=== PATIENT | male | born 1950 | race Caucasian/White ===

== ENCOUNTER 2018-01-01 20:51 | Emergency (ER) | payer MEDICARE, OTHER ==
[2018-01-01] MEDS ORDERED: Famotidine In NaCl 20 mg/50 ml Premix Bag ONE (21:21)
[2018-01-01] MEDS ORDERED: Fentanyl 100 MCG/2 ML VIAL ONE (21:23)
[2018-01-01 21:38] LABS: Bilirubin Negative (Negative); Blood, Urine Trace (Negative); Clarity Clear (Clear); Glucose, Urine (Dipstick) Negative (Negative); Leukocyte Negative (Negative); Nitrite Negative (Negative); Protein, Urine (Dipstick) Negative (Neg-Trace); Urobilinogen 0.2 mg/dL (0.2-1.0); pH, Urine 5.5 (5.0-9.0)
[2018-01-01 21:39] LABS: Specific Gravity, Urine 1.002 (1.002-1.036)
[2018-01-01 21:39] LABS: ALT (SGPT) 163 U/L (8-55); AST (SGOT) 149 U/L (5-34); Albumin 3.5 g/dL (3.4-4.8); Alkaline Phosphatase 73 U/L (40-150); Anion Gap 13 mmol/L (10-20); BUN (Urea Nitrogen) 9 mg/dL (8.4-25.7); Bilirubin, Total 0.5 mg/dL (0.2-1.2); Calc. Creatinine Clearance 0 mL/min (70-130); Calcium 8.4 mg/dL (7.8-10.44); Carbon Dioxide 21 mmol/L (23-31); Chloride 103 mmol/L (98-107); Estimated GFR-MDRD Greater than 90; Globulin 5.2 g/dL (2.4-3.5); Glucose 116 mg/dL (80-115); Lipase 28 U/L (8-78); Potassium 3.9 mmol/L (3.5-5.1); Protein, Total 8.7 g/dL (5.8-8.1); Sodium 133 mmol/L (136-145); Troponin I Less than 0.010 ng/mL (< 0.028)
[2018-01-01] MEDS ORDERED: Ondansetron HCl/PF 4 MG/2 ML Vial ONE (21:41)
[2018-01-01 21:42] LABS: Bacteria/HPF None Seen HPF (None Seen); RBC/HPF 0-3 HPF (0-3); Squamous Epithelial None Seen HPF (0-3); WBC/HPF 0-3 HPF (0-3)
[2018-01-01 21:43] LABS: Hemoglobin 13.7 g/dL (14.0-18.0); Red Blood Cell (RBC) Count 4.01 mill/uL (4.70-6.10); White Blood Cell (WBC) Count 7.4 thou/uL (4.8-10.8)
[2018-01-01 21:44] LABS: #Lymphocytes 1.8 thou/uL (1.20-3.40); #Neutrophils 4.8 thou/uL (1.40-6.50); %Basophils 1.1 % (0.0-1.0); %Eosinophils 0.4 % (0.0-10.0); %Monocytes 9.6 % (0.0-10.0); %Neutrophils 64.9 % (42.0-75.0); Mean Corpuscular HGB CONC 33.7 g/dL (32.0-36.0); Mean Corpuscular Hemoglobin 34.1 pg (27.0-31.0); Mean Platelet Volume 8.1 fL (7.4-10.4); Platelet Count 157 thou/uL (130-400)
[2018-01-01 21:45] LABS: #Basophils 0.1 thou/uL (0.0-0.2); #Monocytes 0.7 thou/uL (0.11-0.59); Macrocytosis SLIGHT = 6-15 cells (100X) (0-5/hpf); RBC Morphology Normal
[2018-01-01 21:46] LABS: PLT Morphology Comment Appears Adequate
--- NOTE | 2018-01-01 22:37 | CT ---
CT ABDOMEN AND PELVIS WITH CONTRAST: 01/01/18 Spiral computed tomography of the abdomen and pelvis was performed with IV contrast. Oral contrast wa s withheld by request. Axial slices were acquired then coronal reconstructions were done. The liver, spleen, pancreas, adrenal glands, kidneys and abdominal aorta showed no acute findings. Ar teriosclerotic change was seen in the aorta. The gallbladder seems slightly distended, though the length of 7.6 cm is not excessive. On a few of t he slices, a small crescent is seen in the neck of the gallbladder that is suspicious for the edge of a lucent stone. An elective ultrasound to investigate this further is recommended. The bowel shows no signs of obstruction. The proximal small bowel is slightly fluid filled and perhap s has some minimally thickened loops, but overall, the appearance is not very concerning. There is ca lcification in the colon that is probably not of concern. No free air of free fluid was seen. CT of the pelvis shows no pelvic masses, fluid collections, or inflammatory changes. A few diverticul a were seen in the sigmoid colon. IMPRESSION: Slightly distended gallbladder with a possible stone in its neck. An elective ultrasound is recommend ed to investigate this further. POS: HOME
[2018-01-01] MEDS ORDERED: Ketorolac Tromethamine 30 MG/ML VIAL ONE (22:51)
== END 2018-01-01 23:02 | disposition home or self-care (01) ==
LOC: BURERS 20:51
DX: K42.9 Umbilical hernia without obstruction or gangrene (principal); R79.89 Other specified abnormal findings of blood chemistry; F17.210 Nicotine dependence, cigarettes, uncomplicated
CPT/HCPCS: 74177; 80053; 81003; 81015; 82553; 83690; 84484; 85025; 96365; 96375; J1885; J2405; J3010

== ENCOUNTER 2018-07-27 00:56 | Emergency (ER) | payer MEDICARE, OTHER ==
[2018-07-27] MEDS ORDERED: Fentanyl 100 MCG/2 ML VIAL ONE (01:03)
[2018-07-27] MEDS ORDERED: Ondansetron HCl/PF 4 MG/2 ML Vial ONE (01:03)
[2018-07-27 01:35] LABS: #Basophils 0.1 thou/uL (0.0-0.2); #Eosinphils 0.1 thou/uL (0.0-0.7); #Lymphocytes 3.9 thou/uL (1.20-3.40); #Monocytes 0.9 thou/uL (0.11-0.59); #Neutrophils 2.9 thou/uL (1.40-6.50); %Basophils 1.7 % (0.0-1.0); %Eosinophils 1.2 % (0.0-10.0); %Lymphocytes 49.6 % (21.0-51.0); %Monocytes 11.1 % (0.0-10.0); %Neutrophils 36.6 % (42.0-75.0); Hemoglobin 14.1 g/dL (14.0-18.0); Mean Corpuscular HGB CONC 33.2 g/dL (32.0-36.0); Mean Corpuscular Hemoglobin 32.9 pg (27.0-31.0); Mean Corpuscular Volume 99.1 fL (78.0-98.0); Mean Platelet Volume 8.8 fL (7.4-10.4); Platelet Count 182 thou/uL (130-400); RBC Distribution Width 12.2 % (11.5-14.5); Red Blood Cell (RBC) Count 4.28 mill/uL (4.70-6.10); White Blood Cell (WBC) Count 7.8 thou/uL (4.8-10.8)
[2018-07-27 01:37] LABS: Bilirubin Negative (Negative); Blood, Urine Small (Negative); Clarity Clear (Clear); Glucose, Urine (Dipstick) Negative (Negative); Leukocyte Negative (Negative); Nitrite Negative (Negative); Protein, Urine (Dipstick) Negative (Neg-Trace); Specific Gravity, Urine 1.006 (1.005-1.030); Urobilinogen 0.2 mg/dL (0.2-1.0); pH, Urine 5.5 (5.0-9.0)
[2018-07-27 01:41] LABS: CKMB 2.9 ng/mL (0-6.6); Troponin I Less than 0.010 ng/mL (< 0.028)
[2018-07-27 01:44] LABS: Squamous Epithelial 0-3 HPF (0-3); WBC/HPF 0-3 HPF (0-3)
[2018-07-27 01:45] LABS: Bacteria/HPF Rare-Few HPF (None Seen)
[2018-07-27 01:55] LABS: ALT (SGPT) 95 U/L (8-55); AST (SGOT) 99 U/L (5-34); Albumin 3.6 g/dL (3.4-4.8); Alkaline Phosphatase 76 U/L (40-150); Anion Gap 12 mmol/L (10-20); BUN (Urea Nitrogen) 8 mg/dL (8.4-25.7); Bilirubin, Total 0.6 mg/dL (0.2-1.2); Calc. Creatinine Clearance 0 mL/min (70-130); Calcium 8.5 mg/dL (7.8-10.44); Carbon Dioxide 23 mmol/L (23-31); Chloride 103 mmol/L (98-107); Estimated GFR-MDRD Greater than 90; Globulin 5.3 g/dL (2.4-3.5); Glucose 81 mg/dL (80-115); Potassium 3.7 mmol/L (3.5-5.1); Protein, Total 8.9 g/dL (5.8-8.1); Sodium 134 mmol/L (136-145)
== END 2018-07-27 01:47 | disposition short-term general hospital (02) ==
LOC: BURERS 00:56
DX: S31.103A Unspecified open wound of abdominal wall, right lower quadrant without penetration into peritoneal cavity, initial encounter (principal); F17.210 Nicotine dependence, cigarettes, uncomplicated; W32.0XXA Accidental handgun discharge, initial encounter
CPT/HCPCS: 51702; 80053; 81003; 81015; 82553; 84484; 85025; 93005; 96374; 96375; G0390; J2405; J3010; J7620

== ENCOUNTER 2020-02-10 20:09 | Emergency (ER) | payer MEDICARE ==
[2020-02-10] MEDS ORDERED: Morphine 10 MG/ML VIAL ONE (20:32)
--- NOTE | 2020-02-10 22:54 | RAD ---
SACRUM AND COCCYX: 02/10/20 Exam in three views shows the arcuate lines of the sacrum to appear intact. The SI joints are symmetr ical. On the lateral view, there is a cortical irregularity around the distal sacrum/proximal coccyx. There is a suspicion of a nondisplaced fracture here. CT would be more definitive. The other portion s of the bony pelvis visible on the study were unremarkable. IMPRESSION: Suspicion of a fracture of the distal sacrum/proximal coccyx. Code T POS: HOME
== END 2020-02-10 21:05 | disposition home or self-care (01) ==
LOC: BURERS 20:09
DX: S32.2XXA Fracture of coccyx, initial encounter for closed fracture (principal); Z87.891 Personal history of nicotine dependence; Z79.899 Other long term (current) drug therapy; W18.2XXA Fall in (into) shower or empty bathtub, initial encounter
CPT/HCPCS: 72220; 96374; J2270

== ENCOUNTER 2022-06-20 18:18 | Emergency (ER) | payer MEDICARE ==
[2022-06-20] MEDS ORDERED: predniSONE 20 MG TAB ONE (18:43)
[2022-06-20] MEDS ORDERED: Sulfameth/Trimethoprim DS 800-160mg TAB ONE (18:43)
[2022-06-20] MEDS ORDERED: hydrOXYzine 25 MG TAB ONE (18:53)
== END 2022-06-20 18:55 | disposition home or self-care (01) ==
LOC: BURERS 18:18
DX: H66.92 Otitis media, unspecified, left ear (principal); K21.9 Gastro-esophageal reflux disease without esophagitis; J44.9 Chronic obstructive pulmonary disease, unspecified
CPT/HCPCS: 99282; J7512

== ENCOUNTER 2023-05-29 17:46 | Emergency (ER) | payer MEDICARE ==
[2023-05-29] MEDS ORDERED: Acetaminophen/Codeine 30-300mg Tablet ONE ×2 (18:05)
[2023-05-29 18:36] LABS: #Basophils 0.1 thou/uL (0.0-0.2); #Eosinphils 0.2 thou/uL (0.0-0.7); #Lymphocytes 1.8 thou/uL (1.20-3.40); #Monocytes 0.6 thou/uL (0.11-0.59); #Neutrophils 3.5 thou/uL (1.40-6.50); %Basophils 1.3 % (0.0-1.0); %Eosinophils 3.3 % (0.0-10.0); %Lymphocytes 29.3 % (21.0-51.0); %Monocytes 9.7 % (0.0-10.0); %Neutrophils 56.4 % (42.0-75.0); Hemoglobin 13.8 g/dL (14.0-18.0); Mean Corpuscular HGB CONC 32.7 g/dL (32.0-36.0); Mean Corpuscular Hemoglobin 32.9 pg (27.0-31.0); Mean Platelet Volume 7.5 fL (7.4-10.4); Platelet Count 171 10x3/uL (130-400); White Blood Cell (WBC) Count 6.2 10x3/uL (4.8-10.8)
[2023-05-29] MEDS ORDERED: Ipratropium/Albuterol 3 ML NEB ONE (18:45)
[2023-05-29 18:55] LABS: ALT (SGPT) 403 U/L (8-55); AST (SGOT) 292 U/L (5-34); Alkaline Phosphatase 150 U/L (40-110); Anion Gap 10 mmol/L (10-20); BUN (Urea Nitrogen) 14 mg/dL (8.4-25.7); Bilirubin, Total 0.6 mg/dL (0.2-1.2); Calc. Creatinine Clearance 0 mL/min (70-130); Calcium 8.9 mg/dL (7.8-10.44); Carbon Dioxide 23 mmol/L (23-31); Chloride 108 mmol/L (98-107); Estimated GFR 77; Globulin 6.6 g/dL (2.4-3.5); Glucose 100 mg/dL (80-115); Potassium 4.2 mmol/L (3.5-5.1); Protein, Total 9.6 g/dL (5.8-8.1); Sodium 137 mmol/L (136-145)
== END 2023-05-29 20:04 | disposition home or self-care (01) ==
LOC: BURERS 17:46
DX: J11.1 Influenza due to unidentified influenza virus with other respiratory manifestations (principal); K21.9 Gastro-esophageal reflux disease without esophagitis; J44.9 Chronic obstructive pulmonary disease, unspecified; Z87.891 Personal history of nicotine dependence
CPT/HCPCS: 71046; 80053; 83605; 83880; 84484; 85025; 87040; 87804; J7620

== ENCOUNTER 2023-11-07 19:07 | Emergency (ER) | payer MEDICARE ==
[~2023-11-07 19:07] MED LIST: Iopamidol 370 76% 100 ML VIAL ONE
[2023-11-07] MEDS ORDERED: Ipratropium/Albuterol 3 ML NEB ONE (19:12)
[2023-11-07] MEDS ORDERED: Albuterol 2.5 MG/0.5 ML NEB ONE (19:15)
[2023-11-07] MEDS ORDERED: methylPREDNISolone Sod Succ/PF 125 MG/2 ML VIAL ONE (19:23)
[2023-11-07] MEDS ORDERED: Lorazepam 2 MG/ML VIAL ONE (19:23)
[2023-11-07 19:32] LABS: #Lymphocytes 1.7 thou/uL (1.20-3.40); #Monocytes 0.4 thou/uL (0.11-0.59); #Neutrophils 11.1 thou/uL (1.40-6.50); %Basophils 0.3 % (0.0-1.0); %Lymphocytes 13.1 % (21.0-51.0); %Monocytes 2.9 % (0.0-10.0); %Neutrophils 83.6 % (42.0-75.0); Hematocrit 45.1 % (42.0-52.0); Hemoglobin 14.6 g/dL (14.0-18.0); Mean Corpuscular HGB CONC 32.4 g/dL (32.0-36.0); Mean Corpuscular Hemoglobin 31.7 pg (27.0-31.0); Mean Corpuscular Volume 98.1 fl (78.0-98.0); Mean Platelet Volume 7.7 fL (7.4-10.4); Platelet Count 260 10x3/uL (130-400); RBC Distribution Width 12.3 % (11.5-14.5); White Blood Cell (WBC) Count 13.3 10x3/uL (4.8-10.8)
[2023-11-07 19:48] LABS: ALT (SGPT) 173 U/L (8-55); AST (SGOT) 97 U/L (5-34); Albumin 3.7 g/dL (3.4-4.8); Alkaline Phosphatase 101 U/L (40-110); Anion Gap 15 mmol/L (10-20); BUN (Urea Nitrogen) 17 mg/dL (8.4-25.7); Bilirubin, Total 0.5 mg/dL (0.2-1.2); Calc. Creatinine Clearance 0 mL/min (70-130); Calcium 9.7 mg/dL (7.8-10.44); Carbon Dioxide 18 mmol/L (23-31); Chloride 104 mmol/L (98-107); Estimated GFR 55; Globulin 6.4 g/dL (2.4-3.5); Glucose 102 mg/dL (83-110); Potassium 4.1 mmol/L (3.5-5.1); Protein, Total 10.1 g/dL (5.8-8.1); Sodium 133 mmol/L (136-145)
[2023-11-07] MEDS ORDERED: Morphine 4 MG/ML VIAL ONE (20:03)
[2023-11-07] MEDS ORDERED: Benzonatate 100 MG CAP ONE (20:38)
[2023-11-07] MEDS ORDERED: fentaNYL 50 mcg/mL 1 mL Vial ONE (21:22)
[2023-11-07] MEDS ORDERED: Azithromycin 500 MG VIAL ONE (21:58)
[2023-11-07 22:58] LABS: SARS-CoV-2 NAA Rapid Test Not Detected (NotDetected)
[2023-11-07] MEDS ORDERED: Famotidine/PF 20 mg/2ml Vial ONE (23:00)
== END 2023-11-08 00:35 | disposition short-term general hospital (02) ==
LOC: BURERS 19:07
DX: J44.1 Chronic obstructive pulmonary disease with (acute) exacerbation (principal); R00.0 Tachycardia, unspecified; J44.9 Chronic obstructive pulmonary disease, unspecified; Z79.899 Other long term (current) drug therapy; Z87.891 Personal history of nicotine dependence
CPT/HCPCS: 71046; 71275; 80053; 85025; 85379; 93005; 96361; 96365; 96375; 99285; J0456; J3010; U0002; 36415; J2060; J2270; J2930; J7611; J7620; Q9967; S0028

== ENCOUNTER 2023-11-23 17:30 | Emergency (ER) | payer MEDICARE ==
[2023-11-23] MEDS ORDERED: HYDROcodone/Acetaminophen 10/325 mg Tablet ONE (17:44)
[2023-11-23] MEDS ORDERED: Ipratropium/Albuterol 3 ML NEB ONE (17:44)
[2023-11-23] MEDS ORDERED: Benzonatate 100 MG CAP ONE (17:44)
[2023-11-23] MEDS ORDERED: methylPREDNISolone Sod Succ/PF 125 MG/2 ML VIAL ONE (17:44)
[2023-11-23 18:08] LABS: #Basophils 0.2 thou/uL (0.0-0.2); #Eosinphils 0.3 thou/uL (0.0-0.7); #Lymphocytes 2.4 thou/uL (1.20-3.40); #Neutrophils 4.6 thou/uL (1.40-6.50); %Basophils 1.9 % (0.0-1.0); %Monocytes 11.8 % (0.0-10.0); %Neutrophils 54.3 % (42.0-75.0); Hematocrit 38.6 % (42.0-52.0); Hemoglobin 13.1 g/dL (14.0-18.0); Mean Corpuscular Hemoglobin 32.3 pg (27.0-31.0); Mean Corpuscular Volume 95.1 fl (78.0-98.0); Mean Platelet Volume 7.5 fL (7.4-10.4); Platelet Count 162 10x3/uL (130-400); RBC Distribution Width 11.8 % (11.5-14.5); Red Blood Cell (RBC) Count 4.05 mill/uL (4.70-6.10); White Blood Cell (WBC) Count 8.6 10x3/uL (4.8-10.8)
[2023-11-23 18:25] LABS: ALT (SGPT) 132 U/L (8-55); AST (SGOT) 119 U/L (5-34); Albumin 3.4 g/dL (3.4-4.8); Alkaline Phosphatase 99 U/L (40-110); Anion Gap 15 mmol/L (10-20); BUN (Urea Nitrogen) 8 mg/dL (8.4-25.7); Bilirubin, Total 0.5 mg/dL (0.2-1.2); Calc. Creatinine Clearance 0 mL/min (70-130); Calcium 8.2 mg/dL (7.8-10.44); Carbon Dioxide 15 mmol/L (23-31); Chloride 104 mmol/L (98-107); Estimated GFR 89; Globulin 4.4 g/dL (2.4-3.5); Glucose 87 mg/dL (83-110); Magnesium 1.6 mg/dL (1.6-2.6); Potassium 4.1 mmol/L (3.5-5.1); Protein, Total 7.8 g/dL (5.8-8.1); Sodium 130 mmol/L (136-145)
[2023-11-23] MEDS ORDERED: Amoxicillin/Potassium Clav 875 MG TAB ONE (18:33)
[2023-11-23] MEDS ORDERED: Morphine 4 MG/ML VIAL ONE (18:42)
[2023-11-23] MEDS ORDERED: Ondansetron PF 4 MG/2 ML Vial ONE (18:42)
[2023-11-23 18:55] LABS: SARS-CoV-2 NAA Rapid Test Not Detected (NotDetected)
[2023-11-23] MEDS ORDERED: HYDROcodone/Acetaminophen 5/325 mg Tablet ONE (19:23)
== END 2023-11-23 19:15 | disposition home or self-care (01) ==
LOC: BURERS 17:30
DX: J44.1 Chronic obstructive pulmonary disease with (acute) exacerbation (principal); Z87.892 Personal history of anaphylaxis; Z79.899 Other long term (current) drug therapy
CPT/HCPCS: 71045; 80053; 83735; 84484; 85025; 93005; 96374; 96375; J2270; J2405; J2930; J7620; U0002

== ENCOUNTER 2024-01-23 23:43 | Emergency (ER) | payer MEDICARE ==
[2024-01-24] MEDS ORDERED: Ipratropium/Albuterol 3 ML NEB ONE ×2 (00:15→00:38)
[2024-01-24] MEDS ORDERED: Morphine 4 MG/ML VIAL ONE ×2 (00:15→02:03)
[2024-01-24] MEDS ORDERED: Ondansetron PF 4 MG/2 ML Vial ONE (00:15)
[2024-01-24] MEDS ORDERED: methylPREDNISolone Sod Succ/PF 125 MG/2 ML VIAL ONE (00:15)
[2024-01-24] MEDS ORDERED: Vancomycin 1 GM VIAL ONE (00:26)
[2024-01-24] MEDS ORDERED: Cefepime 2 GM VIAL ONE (00:26)
[2024-01-24 00:45] LABS: ALT (SGPT) 38 U/L (8-55); AST (SGOT) 36 U/L (5-34); Albumin 2.9 g/dL (3.4-4.8); Alkaline Phosphatase 82 U/L (40-110); Anion Gap 14 mmol/L (10-20); BUN (Urea Nitrogen) 23 mg/dL (8.4-25.7); Bilirubin, Total 0.6 mg/dL (0.2-1.2); Calc. Creatinine Clearance 0 mL/min (70-130); Calcium 8.2 mg/dL (7.8-10.44); Carbon Dioxide 14 mmol/L (23-31); Chloride 107 mmol/L (98-107); Estimated GFR 49; Globulin 5.8 g/dL (2.4-3.5); Glucose 108 mg/dL (83-110); Protein, Total 8.7 g/dL (5.8-8.1); Sodium 131 mmol/L (136-145)
[2024-01-24 00:46] LABS: Troponin I Less than 0.010 ng/mL (< 0.028)
[2024-01-24 00:58] LABS: INR-International Normal Ratio 1.2; PTT 32.7 sec (22.9-36.1); Prothrombin Time 14.7 sec (12.0-14.7)
[2024-01-24 01:02] LABS: Hematocrit 36.3 % (42.0-52.0); Hemoglobin 12.9 g/dL (14.0-18.0); Mean Corpuscular HGB CONC 35.6 g/dL (32.0-36.0); Mean Corpuscular Hemoglobin 33.7 pg (27.0-31.0); Mean Corpuscular Volume 94.5 fl (78.0-98.0); Mean Platelet Volume 7.4 fL (7.4-10.4); Platelet Count 163 10x3/uL (130-400); RBC Distribution Width 12.6 % (11.5-14.5); Red Blood Cell (RBC) Count 3.84 mill/uL (4.70-6.10); White Blood Cell (WBC) Count 23.9 10x3/uL (4.8-10.8)
[2024-01-24 01:13] LABS: Influenza A by NAA Not Detected (NotDetected); Influenza B by NAA Not Detected (NotDetected); SARS-CoV-2 NAA Rapid Test Not Detected (NotDetected)
[2024-01-24] MEDS ORDERED: Acetaminophen 500 MG TAB ONE (03:03)
[2024-01-24 04:39] LABS: Band 4 % (5-11); Lymphocytes 17 % (21-51); MDiff Complete? YES; Monocytes 6 % (0-10); Neutrophil 72 % (42-75)
== END 2024-01-24 03:48 | disposition short-term general hospital (02) ==
LOC: BURERS 23:43
DX: J44.1 Chronic obstructive pulmonary disease with (acute) exacerbation (principal); A41.9 Sepsis, unspecified organism; L08.9 Local infection of the skin and subcutaneous tissue, unspecified; Z87.891 Personal history of nicotine dependence
CPT/HCPCS: 36415; 71045; 80053; 83605; 83880; 84484; 85025; 85610; 85730; 86140; 87040; 93005; 94640; 94760; 96365; 96367; 96375; 96376; J0692; J2270; J2405; J2930; J3370; J7620

== ENCOUNTER 2024-04-10 13:39 | Emergency (ER) | payer MEDICARE ==
[2024-04-10 14:24] LABS: #Basophils 0.2 thou/uL (0.0-0.2); #Lymphocytes 1.4 thou/uL (1.20-3.40); #Monocytes 1.1 thou/uL (0.11-0.59); #Neutrophils 12.5 thou/uL (1.40-6.50); %Basophils 1.1 % (0.0-1.0); %Eosinophils 0.2 % (0.0-10.0); %Lymphocytes 9.2 % (21.0-51.0); %Monocytes 6.9 % (0.0-10.0); %Neutrophils 82.6 % (42.0-75.0); Hemoglobin 12.4 g/dL (14.0-18.0); Mean Corpuscular HGB CONC 32.6 g/dL (32.0-36.0); Mean Corpuscular Hemoglobin 32.6 pg (27.0-31.0); Mean Platelet Volume 7.5 fL (7.4-10.4); Platelet Count 78 10x3/uL (130-400); RBC Distribution Width 13.8 % (11.5-14.5); White Blood Cell (WBC) Count 15.2 10x3/uL (4.8-10.8)
[2024-04-10 14:35] LABS: Hypochromia SLIGHT = 6-15 cells (100X) (0-5/hpf); MDiff Complete? YES; Platelet Adequacy Comment Appears Decreased
[2024-04-10] MEDS ORDERED: Morphine 2 MG/ML VIAL ONE ×2 (14:35→15:27)
[2024-04-10 14:38] LABS: ALT (SGPT) 302 U/L (8-55); AST (SGOT) 176 U/L (5-34); Albumin 2.6 g/dL (3.4-4.8); Alkaline Phosphatase 92 U/L (40-110); Anion Gap 10 mmol/L (10-20); BUN (Urea Nitrogen) 11 mg/dL (8.4-25.7); Calc. Creatinine Clearance 0 mL/min (70-130); Calcium 7.7 mg/dL (7.8-10.44); Carbon Dioxide 20 mmol/L (23-31); Chloride 107 mmol/L (98-107); Estimated GFR 93; Glucose 100 mg/dL (83-110); Potassium 3.8 mmol/L (3.5-5.1); Protein, Total 6.6 g/dL (5.8-8.1); Sodium 133 mmol/L (136-145)
[2024-04-10 14:39] LABS: Troponin I 0.017 ng/mL (< 0.028)
[2024-04-10] MEDS ORDERED: Sodium Chloride 0.9% 100 ML ONE (15:05)
[2024-04-10] MEDS ORDERED: Cefepime 2 GM VIAL ONE (15:05)
[2024-04-10 15:45] LABS: Influenza A by NAA Not Detected (NotDetected); Influenza B by NAA Not Detected (NotDetected); SARS-CoV-2 NAA Rapid Test Not Detected (NotDetected)
== END 2024-04-10 15:45 | disposition short-term general hospital (02) ==
LOC: BURERS 13:39
DX: A41.9 Sepsis, unspecified organism (principal); R65.20 Severe sepsis without septic shock; J96.20 Acute and chronic respiratory failure, unspecified whether with hypoxia or hypercapnia; Z79.52 Long term (current) use of systemic steroids; J43.9 Emphysema, unspecified; Z87.891 Personal history of nicotine dependence
CPT/HCPCS: 71045; 80053; 83605; 83880; 84484; 85025; 87040; 93005; 96374; 96376; J0692; J2272; J3490

== ENCOUNTER 2024-04-26 04:04 | Inpatient (IN) | payer MEDICARE ==
[2024-04-27] MEDS ORDERED: Nystatin Powder 15 GM BOT TOP PRN (19:48)
[2024-04-27] MEDS ORDERED: Senokot S 8.6-50 MG TAB PO PRN (19:48)
[2024-04-27] MEDS ORDERED: Hydrocodone-Acetamin 15 ML UDCUP PO PRN (19:48)
[2024-04-27] MEDS ORDERED: Calcium Carbonate 500 MG ChewTAB PO PRN (19:48)
[2024-04-27] MEDS ORDERED: Polyethylene Glycol 3350 17 GM Packet PO PRN (19:48)
[2024-04-27] MEDS: Tamsulosin HCl 0.4 MG CAP PO SCH (20:26)
[2024-04-27] MEDS: Temazepam 15 MG CAP PO SCH (20:26)
[2024-04-27] MEDS: CeleCOXIB 100 MG CAP PO SCH (20:26)
[2024-04-27] MEDS: Apixaban 5 MG TAB PO SCH (20:27)
[2024-04-27] MEDS: Mirtazapine 15 MG TAB PO SCH (20:27)
[2024-04-27] MEDS: Pantoprazole DR 40 MG TAB PO SCH (20:27)
[2024-04-27] MEDS: traZODone HCl 50 MG TAB PO SCH (20:27)
[2024-04-27] MEDS: Metoprolol Tartrate 25 MG TAB PO SCH (20:28)
[2024-04-27] MEDS ORDERED: HYDROcodone/Acetaminophen 10/325 mg Tablet PO PRN (20:42)
[2024-04-27] MEDS: HYDROcodone/Acetaminophen 10/325 mg Tablet PO PRN (20:59)
[2024-04-27] MEDS: Albuterol 200 PUFF (6.7GM INHALER) INH PRN (21:03)
[2024-04-27] MEDS: Benzonatate 100 MG CAP PO PRN (21:42)
[2024-04-27] MEDS: Lorazepam 0.5 MG TAB PO PRN (23:38)
[2024-04-27] MEDS: Ipratropium/Albuterol 3 ML NEB NEB SCH (23:38)
[2024-04-28] MEDS: Guaifenesin DM 100-10/5 ML UDCUP PO PRN (03:02)
[2024-04-28] MEDS: NIFEdipine XL 30 MG ER.TAB PO SCH (08:26)
[2024-04-28] MEDS: LevoFLOXacin 500 MG TAB PO SCH (08:28)
[2024-04-28] MEDS: predniSONE 10 MG TAB PO SCH (08:28)
[2024-04-28] MEDS: Furosemide 20 MG TAB PO SCH (08:29)
[2024-04-28] MEDS: Mometasone 100 MCG/PUFF (1 INHALER) INH SCH (08:29)
[2024-04-28] MEDS: Potassium Chloride 20 MEQ TAB PO SCH (08:30)
[2024-04-28] MEDS ORDERED: Pantoprazole DR 40 MG TAB PO SCH (09:00)
[2024-04-28] MEDS: Cyclobenzaprine 10 MG TAB PO PRN (12:21)
[2024-04-29 09:25] LABS: #Basophils 0.1 thou/uL (0.0-0.2); #Eosinphils 0.1 thou/uL (0.0-0.7); #Lymphocytes 0.8 thou/uL (1.20-3.40); #Monocytes 0.7 thou/uL (0.11-0.59); #Neutrophils 6.9 thou/uL (1.40-6.50); %Basophils 1.6 % (0.0-1.0); %Eosinophils 0.6 % (0.0-10.0); %Lymphocytes 9.2 % (21.0-51.0); %Monocytes 8.1 % (0.0-10.0); %Neutrophils 80.4 % (42.0-75.0); Hemoglobin 8.7 g/dL (14.0-18.0); Mean Corpuscular HGB CONC 32.2 g/dL (32.0-36.0); Mean Corpuscular Hemoglobin 32.3 pg (27.0-31.0); Mean Platelet Volume 7.1 fL (7.4-10.4); Platelet Count 168 10x3/uL (130-400); RBC Distribution Width 16.8 % (11.5-14.5); Red Blood Cell (RBC) Count 2.69 mill/uL (4.70-6.10); White Blood Cell (WBC) Count 8.6 10x3/uL (4.8-10.8)
[2024-04-29 09:51] LABS: MDiff Complete? YES; Manual Diff?? NO
[2024-04-30] MEDS: Nystatin 500,000 UNITS/5 ML UDCUP SSW SCH (16:43)
[2024-04-30] MEDS: HYDROcodone/Acetaminophen 10/325 mg Tablet PO PRN (23:17)
[2024-05-01] MEDS: hydrOXYzine 25 MG TAB PO PRN (03:41)
[2024-05-02 05:48] VITALS: BMI 28.4
[2024-05-02] MEDS: TRELEGY ELLIPTA INH SCH (08:47)
[2024-05-02 10:01] LABS: #Basophils 0.1 thou/uL (0.0-0.2); #Eosinphils 0.1 thou/uL (0.0-0.7); #Lymphocytes 0.8 thou/uL (1.20-3.40); #Monocytes 0.6 thou/uL (0.11-0.59); %Eosinophils 1.6 % (0.0-10.0); %Lymphocytes 11.5 % (21.0-51.0); %Monocytes 9.5 % (0.0-10.0); %Neutrophils 76.4 % (42.0-75.0); Hematocrit 26.6 % (42.0-52.0); Hemoglobin 8.6 g/dL (14.0-18.0); MDiff Complete? YES; Manual Diff?? NO; Mean Corpuscular HGB CONC 32.5 g/dL (32.0-36.0); Mean Corpuscular Hemoglobin 33.1 pg (27.0-31.0); Mean Platelet Volume 7.1 fL (7.4-10.4); Platelet Count 147 10x3/uL (130-400); RBC Distribution Width 17.1 % (11.5-14.5); Red Blood Cell (RBC) Count 2.61 mill/uL (4.70-6.10); White Blood Cell (WBC) Count 6.6 10x3/uL (4.8-10.8)
[2024-05-02 10:12] LABS: ALT (SGPT) 81 U/L (8-55); AST (SGOT) 63 U/L (5-34); Albumin 3.4 g/dL (3.4-4.8); Alkaline Phosphatase 125 U/L (40-110); Anion Gap 13 mmol/L (10-20); BUN (Urea Nitrogen) 14 mg/dL (8.4-25.7); Bilirubin, Total 1.7 mg/dL (0.2-1.2); Calc. Creatinine Clearance 60 mL/min (70-130); Calcium 8.4 mg/dL (7.8-10.44); Carbon Dioxide 22 mmol/L (23-31); Chloride 105 mmol/L (98-107); Estimated GFR 52; Globulin 3.2 g/dL (2.4-3.5); Glucose 107 mg/dL (83-110); Protein, Total 6.6 g/dL (5.8-8.1); Sodium 136 mmol/L (136-145)
[2024-05-02] MEDS: Cefdinir 300 MG CAP PO SCH (21:11)
[2024-05-03] MEDS: Azithromycin 250 MG TAB PO SCH (08:54)
[2024-05-06 09:55] VITALS: BMI 28.4
[2024-05-07 06:12] VITALS: TEMP 97.6
[2024-05-07 08:59] VITALS: BP 118/80
== END 2024-05-07 11:40 | disposition hospice, home (50) | DRG 193 ==
LOC: BURMED 04-27 16:55
PROVIDERS: ADMIT Family Medicine; ATTEND Family Medicine
DX: J18.9 Pneumonia, unspecified organism (principal); I26.99 Other pulmonary embolism without acute cor pulmonale; J96.21 Acute and chronic respiratory failure with hypoxia; I50.32 Chronic diastolic (congestive) heart failure; R53.81 Other malaise; D64.9 Anemia, unspecified; K21.9 Gastro-esophageal reflux disease without esophagitis; J44.9 Chronic obstructive pulmonary disease, unspecified; N40.0 Benign prostatic hyperplasia without lower urinary tract symptoms; Z98.890 Other specified postprocedural states; Z87.891 Personal history of nicotine dependence; Z79.01 Long term (current) use of anticoagulants; Z79.899 Other long term (current) drug therapy; I11.0 Hypertensive heart disease with heart failure; K57.30 Diverticulosis of large intestine without perforation or abscess without bleeding
CPT/HCPCS: 36415; 36416; 71045; 80053; 85025; 94640; J7512; J7620